=== PATIENT | female | born 1990 | race Two or more races ===

== ENCOUNTER 2018-02-09 21:04 | Inpatient (IN) | payer MEDICAID ==
[~2018-02-09] VITALS: Ht 167.6 cm; Wt 88.3 kg
[2018-02-09 21:23] LABS: BASOPHILS % (AUTO) 0.6 % (0.0-2.0); EOSINOPHILS % (AUTO) 0.4 % (1.0-6.0); HEMOGLOBIN 12.6 g/dL (12.0-16.0); LYMPHOCYTES # (AUTO) 1.5 K/uL (1.0-4.8); LYMPHOCYTES % (AUTO) 29.1 % (22.0-44.0); MEAN CORPUSCULAR HEMOGLOBIN 33.3 pg (26.0-34.0); MEAN CORPUSCULAR VOLUME 95 fL (80-100); MONOCYTES # (AUTO) 0.4 K/uL (0.1-1.0); MONOCYTES % (AUTO) 8.3 % (2.0-9.0); NEUTROPHILS # (AUTO) 3.1 K/uL (1.8-7.7); NEUTROPHILS % (AUTO) 61.6 % (40.0-70.0); PLATELET COUNT (AUTO) 214 K/uL (150-450); RED BLOOD CELL COUNT(AUTO) 3.79 MIL/uL (4.00-5.20); RED CELL DISTRIBUTION WIDTH 12.5 % (11.5-14.5)
[2018-02-09] MEDS ORDERED: VENL25TA47 PO (21:25)
[2018-02-09] MEDS ORDERED: MIRT15 PO (21:25)
[2018-02-09] MEDS ORDERED: PHEN50TA2 PO (21:25)
[2018-02-09] MEDS ORDERED: GABA-529 PO (21:25)
[2018-02-09] MEDS ORDERED: PRAZ1 PO (21:25)
[2018-02-09 21:32] LABS: ANION GAP 5 mmol/L (8-16); CALCIUM, TOTAL 8.9 mg/dL (8.8-10.5); CARBON DIOXIDE 29 mmol/L (22-29); CHLORIDE 103 mmol/L (98-107); CREATININE 0.79 mg/dL (0.60-1.30); GLOMERULAR FILTR. RATE CALC > 60 mL/min (>60); GLUCOSE,RANDOM 137 mg/dL (70-110); POTASSIUM 4.1 mmol/L (3.5-5.1); SODIUM SERUM 137 mmol/L (136-145); UREA NITROGEN, BLOOD 12 mg/dL (7-18)
[2018-02-09 21:38] LABS: ACETAMINOPHEN < 2 mcg/mL (10-30); ALANINE AMINOTRANSFERASE 24 U/L (12-78); ALBUMIN 3.6 g/dL (3.4-5.0); ALKALINE PHOSPHATASE 81 U/L (46-116); ASPARTATE AMINOTRANSFERASE 13 U/L (15-37); BILIRUBIN,TOTAL 0.2 mg/dL (0.1-1.0); TOTAL PROTEIN, SERUM 6.8 g/dL (6.4-8.2)
[2018-02-09 21:56] LABS: PHENYTOIN (DILANTIN) 32.6 mcg/mL (10.0-20.0)
[2018-02-09 22:07] LABS: SALICYLATE 2.3 mg/dL (2.8-20.0)
[2018-02-09 22:51] LABS: APPEARANCE,URINE CLEAR (CLEAR); BILIRUBIN,URINE NEGATIVE (NEGATIVE); GLUCOSE, URINE (UA) NEGATIVE (NEGATIVE); KETONES,URINE NEGATIVE (NEGATIVE); LEUKOCYTE ESTERASE ,URINE NEGATIVE (NEGATIVE); NITRATE,URINE NEGATIVE (NEGATIVE); OCCULT BLOOD,URINE NEGATIVE (NEGATIVE); PROTEIN,URINE NEGATIVE (NEGATIVE); UROBILINOGEN,URINE 0.2 mg/dL (<=1.0)
[2018-02-09 22:54] LABS: AMPHET/METH SCREEN,URINE NEGATIVE (NEGATIVE); BARBITURATE SCREEN, URINE NEGATIVE (NEGATIVE); BENZODIAZEPINES SCREEN,URINE NEGATIVE (NEGATIVE); CANNABINOID SCREEN,URINE POSITIVE (NEGATIVE); COCAINE SCREEN,URINE NEGATIVE (NEGATIVE); METHADONE SCREEN, URINE NEGATIVE (NEGATIVE); OPIATE SCREEN,URINE POSITIVE (NEGATIVE)
[2018-02-09 22:55] LABS: PHENCYCLIDINE SCREEN,URINE NEGATIVE (NEGATIVE)
[2018-02-09 23:09] LABS: BACTERIA,URINE Rare /HPF (None Seen); RBC,URINE 0-2 /HPF (0-2); SQUAMOUS EPITHELIAL CELL,UR Few /LPF (None Seen); WBC,URINE 0-2 /HPF (0-5)
[2018-02-09] MEDS ORDERED: 0.9% SODIUM CHLORIDE 10 ML SYRINGE IVP PRN (23:15)
[2018-02-09] MEDS ORDERED: ONDANSETRON HCL 4 MG/2 ML VIAL IVP PRN (23:15)
[2018-02-09] MEDS ORDERED: ACETAMINOPHEN 325 MG TABLET PO PRN (23:15)
[2018-02-09] MEDS ORDERED: BISACODYL 10 MG RECTAL RECTAL SUPPOSITORY PR PRN (23:45)
[2018-02-09] MEDS ORDERED: MAGNESIUM HYDROXIDE SUSPENSION 30 ML UDCUP PO PRN (23:45)
[2018-02-09] MEDS ORDERED: IPRATROPIUM BROMIDE 0.5 MG/2.5 ML NEB SOLUTION NEB PRN (23:45)
[2018-02-09] MEDS ORDERED: ALBUTEROL SULFATE 2.5 MG/0.5 ML NEB SOLUTION NEB PRN (23:45)
[2018-02-10] MEDS: SODIUM CHLORIDE 0.9% 1,000 ML IV SCH ×2 (00:34→08:44)
[2018-02-10] MEDS: ACETAMINOPHEN 325 MG TABLET PO PRN (05:34)
[2018-02-10 08:04] LABS: BASOPHILS % (AUTO) 0.7 % (0.0-2.0); EOSINOPHILS % (AUTO) 1.1 % (1.0-6.0); HEMATOCRIT 33.6 % (36-46); LYMPHOCYTES % (AUTO) 37.3 % (22.0-44.0); MEAN CORPUSCULAR HEMOGLOBIN 33.6 pg (26.0-34.0); MEAN CORPUSCULAR HGB CONC 35.8 G/dL (31.0-37.0); MEAN CORPUSCULAR VOLUME 94 fL (80-100); MONOCYTES # (AUTO) 0.6 K/uL (0.1-1.0); MONOCYTES % (AUTO) 10.3 % (2.0-9.0); NEUTROPHILS # (AUTO) 2.7 K/uL (1.8-7.7); NEUTROPHILS % (AUTO) 50.6 % (40.0-70.0); PLATELET COUNT (AUTO) 208 K/uL (150-450); RED BLOOD CELL COUNT(AUTO) 3.58 MIL/uL (4.00-5.20); RED CELL DISTRIBUTION WIDTH 12.4 % (11.5-14.5)
[2018-02-10 08:22] LABS: ALANINE AMINOTRANSFERASE 21 U/L (12-78); ALBUMIN 3.3 g/dL (3.4-5.0); ALKALINE PHOSPHATASE 73 U/L (46-116); ANION GAP 4 mmol/L (8-16); ASPARTATE AMINOTRANSFERASE 13 U/L (15-37); BILIRUBIN,TOTAL 0.2 mg/dL (0.1-1.0); CALCIUM, TOTAL 8.1 mg/dL (8.8-10.5); CARBON DIOXIDE 28 mmol/L (22-29); CHLORIDE 106 mmol/L (98-107); CREATININE 0.76 mg/dL (0.60-1.30); GLOMERULAR FILTR. RATE CALC > 60 mL/min (>60); GLUCOSE,RANDOM 91 mg/dL (70-110); PHOSPHORUS 3.6 mg/dL (2.5-4.9); POTASSIUM 3.7 mmol/L (3.5-5.1); SODIUM SERUM 138 mmol/L (136-145); TOTAL PROTEIN, SERUM 6.3 g/dL (6.4-8.2); UREA NITROGEN, BLOOD 10 mg/dL (7-18)
[2018-02-10 08:25] LABS: PHENYTOIN (DILANTIN) 30.3 mcg/mL (10.0-20.0)
[2018-02-10] MEDS: ONDANSETRON HCL 4 MG/2 ML VIAL IVP PRN (16:17)
[2018-02-10 18:22] VITALS: BP 117/68
[2018-02-10 19:31] VITALS: BP 124/56
[2018-02-10 19:34] VITALS: BP 124/56
[2018-02-10] MEDS: ZOLPIDEM TARTRATE 5 MG TABLET PO PRN (22:40)
[2018-02-10 23:41] VITALS: BP 114/58
[2018-02-11] MEDS: SODIUM CHLORIDE 0.9% 1,000 ML IV SCH ×3 (02:58→21:35)
[2018-02-11 04:32] VITALS: BP 110/68
[2018-02-11 07:22] VITALS: BP 113/65
[2018-02-11 07:48] LABS: BASOPHILS % (AUTO) 0.6 % (0.0-2.0); EOSINOPHILS % (AUTO) 1.7 % (1.0-6.0); HEMATOCRIT 34.6 % (36-46); HEMOGLOBIN 12.2 g/dL (12.0-16.0); LYMPHOCYTES % (AUTO) 35.5 % (22.0-44.0); MEAN CORPUSCULAR HEMOGLOBIN 33.3 pg (26.0-34.0); MEAN CORPUSCULAR HGB CONC 35.2 G/dL (31.0-37.0); MEAN CORPUSCULAR VOLUME 95 fL (80-100); MONOCYTES # (AUTO) 0.5 K/uL (0.1-1.0); MONOCYTES % (AUTO) 9.5 % (2.0-9.0); NEUTROPHILS % (AUTO) 52.7 % (40.0-70.0); PLATELET COUNT (AUTO) 196 K/uL (150-450); RED BLOOD CELL COUNT(AUTO) 3.66 MIL/uL (4.00-5.20); RED CELL DISTRIBUTION WIDTH 12.6 % (11.5-14.5)
[2018-02-11 07:58] LABS: ANION GAP 3 mmol/L (8-16); CALCIUM, TOTAL 8.6 mg/dL (8.8-10.5); CARBON DIOXIDE 29 mmol/L (22-29); CHLORIDE 106 mmol/L (98-107); CREATININE 0.77 mg/dL (0.60-1.30); GLOMERULAR FILTR. RATE CALC > 60 mL/min (>60); GLUCOSE,RANDOM 88 mg/dL (70-110); POTASSIUM 4.1 mmol/L (3.5-5.1); SODIUM SERUM 138 mmol/L (136-145); UREA NITROGEN, BLOOD 14 mg/dL (7-18)
[2018-02-11 08:36] LABS: PHENYTOIN (DILANTIN) 24.5 mcg/mL (10.0-20.0)
[2018-02-11 11:27] VITALS: BP 116/63
[2018-02-11] MEDS: ONDANSETRON HCL 4 MG/2 ML VIAL IVP PRN (12:14)
[2018-02-11 15:30] VITALS: BP 118/66
[2018-02-11] MEDS ORDERED: ATOM25 PO (15:51)
[2018-02-11 19:48] VITALS: BP 115/57
[2018-02-11] MEDS: LamoTRIgine 25 MG TABLET PO SCH (20:14)
[2018-02-11] MEDS: ZOLPIDEM TARTRATE 5 MG TABLET PO PRN (21:35)
[2018-02-12] VITALS (7 sets, daily range): BP systolic 94–127; BP diastolic 55–73
[2018-02-12] MEDS: VENLAFAXINE HCL 75 MG ER CAPSULE PO SCH (08:07)
[2018-02-12] MEDS: SODIUM CHLORIDE 0.9% 1,000 ML IV SCH ×2 (08:07→17:04)
[2018-02-12] MEDS: LamoTRIgine 25 MG TABLET PO SCH ×2 (08:07→20:50)
[2018-02-12] MEDS: ONDANSETRON HCL 4 MG/2 ML VIAL IVP PRN (12:32)
[2018-02-12] MEDS: ZOLPIDEM TARTRATE 5 MG TABLET PO PRN (20:51)
[2018-02-12] MEDS: ACETAMINOPHEN 325 MG TABLET PO PRN (20:51)
[2018-02-13 04:30] VITALS: BP 111/65
[2018-02-13] MEDS: SODIUM CHLORIDE 0.9% 1,000 ML IV SCH (05:56)
[2018-02-13 07:46] VITALS: BP 118/72
[2018-02-13] MEDS: VENLAFAXINE HCL 75 MG ER CAPSULE PO SCH (08:02)
[2018-02-13] MEDS: LamoTRIgine 25 MG TABLET PO SCH ×2 (08:03→19:51)
[2018-02-13 14:32] VITALS: BP 109/65
[2018-02-13 15:51] VITALS: BP_SYST 117; BP_SYST 177; BP_DIAS 61
[2018-02-13 20:22] VITALS: BP 117/56
[2018-02-13] MEDS: ZOLPIDEM TARTRATE 5 MG TABLET PO PRN (22:00)
[2018-02-14 00:01] VITALS: BP 115/62
[2018-02-14] MEDS: SODIUM CHLORIDE 0.9% 1,000 ML IV SCH (00:55)
[2018-02-14 05:35] VITALS: BP 107/63
[2018-02-14] MEDS: VENLAFAXINE HCL 75 MG ER CAPSULE PO SCH (08:22)
[2018-02-14] MEDS: LamoTRIgine 25 MG TABLET PO SCH ×2 (08:22→20:03)
[2018-02-14 08:24] VITALS: BP 121/65
[2018-02-14 16:02] VITALS: BP 120/68
[2018-02-14 20:00] VITALS: BP 107/69
[2018-02-14] MEDS: ZOLPIDEM TARTRATE 5 MG TABLET PO PRN (23:19)
[2018-02-14 23:22] VITALS: BP 107/62
[2018-02-15 05:32] VITALS: BP 103/60
[2018-02-15 08:30] VITALS: BP 105/66
[2018-02-15] MEDS: LamoTRIgine 25 MG TABLET PO SCH ×2 (08:46→19:51)
[2018-02-15] MEDS: VENLAFAXINE HCL 75 MG ER CAPSULE PO SCH (08:46)
[2018-02-15 11:02] VITALS: BP 110/56
[2018-02-15 15:54] VITALS: BP 108/63
[2018-02-15 20:00] VITALS: BP 101/59
[2018-02-15] MEDS: ZOLPIDEM TARTRATE 5 MG TABLET PO PRN (22:24)
[2018-02-16 00:22] VITALS: BP 104/59
[2018-02-16 04:45] VITALS: BP 100/51
[2018-02-16 08:00] VITALS: BP 100/57
[2018-02-16] MEDS: VENLAFAXINE HCL 75 MG ER CAPSULE PO SCH (08:42)
[2018-02-16] MEDS: LamoTRIgine 25 MG TABLET PO SCH ×2 (08:42→21:34)
[2018-02-16 11:47] VITALS: BP 106/59
[2018-02-16 16:00] VITALS: BP 103/52
[2018-02-16 19:57] VITALS: BP 109/56
[2018-02-17 00:07] VITALS: BP 97/57
[2018-02-17 04:15] VITALS: BP 101/72
[2018-02-17 07:38] VITALS: BP 94/46
[2018-02-17] MEDS: LamoTRIgine 25 MG TABLET PO SCH ×2 (08:42→20:13)
[2018-02-17] MEDS: VENLAFAXINE HCL 75 MG ER CAPSULE PO SCH (08:43)
[2018-02-17 11:43] VITALS: BP 108/47
[2018-02-17 16:25] VITALS: BP 99/54
[2018-02-17 20:19] VITALS: BP 117/60
[2018-02-18 00:10] VITALS: BP 112/56
[2018-02-18] MEDS: ZOLPIDEM TARTRATE 5 MG TABLET PO PRN (00:18)
[2018-02-18 04:00] VITALS: BP 121/82
[2018-02-18 08:00] VITALS: BP 103/50
[2018-02-18] MEDS: VENLAFAXINE HCL 75 MG ER CAPSULE PO SCH (08:30)
[2018-02-18] MEDS: LamoTRIgine 25 MG TABLET PO SCH ×2 (08:30→20:22)
[2018-02-18 12:03] VITALS: BP 99/48
[2018-02-18 16:15] VITALS: BP 108/60
[2018-02-18 19:53] VITALS: BP 112/52
[2018-02-19] VITALS (7 sets, daily range): BP systolic 98–112; BP diastolic 47–60
[2018-02-19] MEDS: LamoTRIgine 25 MG TABLET PO SCH (09:07)
[2018-02-19] MEDS: VENLAFAXINE HCL 75 MG ER CAPSULE PO SCH (09:07)
[2018-02-20 04:28] VITALS: BP 100/52
[2018-02-20 07:59] VITALS: BP 97/51
[2018-02-20] MEDS: LamoTRIgine 25 MG TABLET PO SCH ×3 (09:31→20:45)
[2018-02-20] MEDS: VENLAFAXINE HCL 75 MG ER CAPSULE PO SCH (09:31)
[2018-02-20 11:28] VITALS: BP 106/55
[2018-02-20 15:10] VITALS: BP 104/62
[2018-02-20 19:38] VITALS: BP 118/54
[2018-02-20] MEDS: ZOLPIDEM TARTRATE 5 MG TABLET PO PRN ×2 (20:45)
[2018-02-20 23:09] VITALS: BP 106/58
[2018-02-21 05:26] VITALS: BP 100/48
[2018-02-21 07:10] VITALS: BP 97/51
[2018-02-21] MEDS: LamoTRIgine 25 MG TABLET PO SCH ×2 (09:02→20:25)
[2018-02-21] MEDS: VENLAFAXINE HCL 75 MG ER CAPSULE PO SCH (09:02)
[2018-02-21 11:20] VITALS: BP 112/56
[2018-02-21 15:57] VITALS: BP 109/65
[2018-02-21 19:13] VITALS: BP 120/62
[2018-02-21] MEDS: ZOLPIDEM TARTRATE 5 MG TABLET PO PRN (20:25)
[2018-02-21 23:41] VITALS: BP 101/58
[2018-02-22 07:32] VITALS: BP 109/59
[2018-02-22] MEDS: LamoTRIgine 25 MG TABLET PO SCH (09:19)
[2018-02-22] MEDS: VENLAFAXINE HCL 75 MG ER CAPSULE PO SCH (09:19)
[2018-02-22] MEDS ORDERED: LAMO25TA66 PO (11:27)
[2018-02-22] MEDS ORDERED: VENL-67 PO (11:29)
[2018-02-22 15:51] VITALS: BP 112/64
== END 2018-02-22 17:00 | disposition home or self-care (01) | DRG 812 ==
LOC: EMS 21:05 → 5S 02-10 17:58 → 6N 02-12 16:50
PROVIDERS: ADMIT Internal Medicine; ATTEND Internal Medicine
DX: T42.0X2A Poisoning by hydantoin derivatives, intentional self-harm, initial encounter (principal); R45.851 Suicidal ideations; T42.0X5A Adverse effect of hydantoin derivatives, initial encounter; G40.909 Epilepsy, unspecified, not intractable, without status epilepticus; G47.00 Insomnia, unspecified; D64.9 Anemia, unspecified; E83.42 Hypomagnesemia; F12.10 Cannabis abuse, uncomplicated; F20.9 Schizophrenia, unspecified; F17.210 Nicotine dependence, cigarettes, uncomplicated; T44.6X2A Poisoning by alpha-adrenoreceptor antagonists, intentional self-harm, initial encounter; F32.9 Major depressive disorder, single episode, unspecified; F41.9 Anxiety disorder, unspecified; H55.00 Unspecified nystagmus; Z88.4 Allergy status to anesthetic agent; Z71.51 Drug abuse counseling and surveillance of drug abuser; Z88.0 Allergy status to penicillin; Z88.2 Allergy status to sulfonamides; Z88.8 Allergy status to other drugs, medicaments and biological substances; Z88.1 Allergy status to other antibiotic agents; Z79.899 Other long term (current) drug therapy; Y92.89 Other specified places as the place of occurrence of the external cause; Z71.6 Tobacco abuse counseling; Z82.5 Family history of asthma and other chronic lower respiratory diseases; Z82.0 Family history of epilepsy and other diseases of the nervous system; Z84.89 Family history of other specified conditions; Z72.89 Other problems related to lifestyle
CPT/HCPCS: 83735; 84100; 87081; 93005; 94640; 96374; 99285; G0480; G0481; J2405; J7030

== ENCOUNTER 2023-07-26 01:13 | Emergency (ER) | payer MEDICARE, MEDICAID ==
[~2023-07-26] VITALS: Ht 167.6 cm; Wt 81.0 kg
[~2023-07-26 01:13] MED LIST: LAMO25TA66 PO; VENL-67 PO
[2023-07-26 02:03] VITALS: TEMP 98.4
[2023-07-26 02:50] LABS: BASOPHILS % (AUTO) 0.1 % (0.0-2.0); EOSINOPHILS % (AUTO) 0.6 % (1.0-6.0); HEMATOCRIT 41.4 % (36-46); HEMOGLOBIN 13.9 g/dL (12.0-16.0); LYMPHOCYTES # (AUTO) 1.1 K/uL (1.0-4.8); MEAN CORPUSCULAR HEMOGLOBIN 30.2 pg (26.0-34.0); MEAN CORPUSCULAR HGB CONC 33.6 G/dL (31.0-37.0); MEAN CORPUSCULAR VOLUME 90 fL (80-100); MONOCYTES # (AUTO) 0.6 K/uL (0.1-1.0); MONOCYTES % (AUTO) 4.3 % (2.0-9.0); NEUTROPHILS # (AUTO) 11.8 K/uL (1.8-7.7); PLATELET COUNT (AUTO) 288 K/uL (150-450); RED BLOOD CELL COUNT(AUTO) 4.59 MIL/uL (4.00-5.20); RED CELL DISTRIBUTION WIDTH 13.6 % (11.5-14.5); WHITE BLOOD COUNT (AUTO) 13.6 K/uL (4.5-11.0)
[2023-07-26 03:05] LABS: ANION GAP 10 mmol/L (8-16); CALCIUM, TOTAL 9.5 mg/dL (8.8-10.5); CARBON DIOXIDE 29 mmol/L (22-29); CHLORIDE 103 mmol/L (98-107); CREATININE 0.83 mg/dL (0.60-1.30); GLOMERULAR FILTR. RATE CALC > 60 mL/min (>60); GLUCOSE,RANDOM 122 mg/dL (70-110); POTASSIUM 3.2 mmol/L (3.5-5.1); SODIUM SERUM 142 mmol/L (136-145); UREA NITROGEN, BLOOD 9 mg/dL (7-18)
[2023-07-26 03:13] LABS: ALANINE AMINOTRANSFERASE 16 U/L (12-78); ALBUMIN 4.2 g/dL (3.4-5.0); ALKALINE PHOSPHATASE 80 U/L (46-116); ASPARTATE AMINOTRANSFERASE 18 U/L (15-37); BILIRUBIN,TOTAL 0.3 mg/dL (0.1-1.0); TOTAL PROTEIN, SERUM 8.1 g/dL (6.4-8.2)
[2023-07-26 03:17] LABS: ALCOHOL, BLOOD (SERUM) < 3 mg/dL (0-10)
[2023-07-26 04:20] VITALS: BP 119/63; PULSE 77; RESP 16
[2023-07-26] MEDS ORDERED: NALO4SPR NASAL (05:25)
== END 2023-07-26 06:31 | disposition home or self-care (01) ==
LOC: EMS 01:13
DX: T40.601A Poisoning by unspecified narcotics, accidental (unintentional), initial encounter (principal); F31.9 Bipolar disorder, unspecified; F20.9 Schizophrenia, unspecified; F17.210 Nicotine dependence, cigarettes, uncomplicated; F10.90 Alcohol use, unspecified, uncomplicated; F12.90 Cannabis use, unspecified, uncomplicated; F15.90 Other stimulant use, unspecified, uncomplicated; Z88.0 Allergy status to penicillin; Z88.2 Allergy status to sulfonamides; Z88.8 Allergy status to other drugs, medicaments and biological substances; Y92.89 Other specified places as the place of occurrence of the external cause
CPT/HCPCS: 99284; 80053; 85025; 36415; 93005; G0480

== ENCOUNTER → 2024-06-19 | Emergency (ER) | payer MEDICARE, OTHER ==
[~2024-06-19] VITALS: Ht 160 cm; Wt 65.9 kg
[~2024-06-19] MED LIST changes: +NALO4SPR NASAL
[2024-06-19 23:13] VITALS: TEMP 97.2
[2024-06-20 00:17] LABS: ANION GAP 7 mmol/L (8-16); CALCIUM, TOTAL 8.9 mg/dL (8.8-10.5); CARBON DIOXIDE 29 mmol/L (22-29); CHLORIDE 101 mmol/L (98-107); CREATININE 0.81 mg/dL (0.60-1.30); GLOMERULAR FILTR. RATE CALC > 60 mL/min (>60); GLUCOSE,RANDOM 80 mg/dL (70-110); SODIUM SERUM 137 mmol/L (136-145); UREA NITROGEN, BLOOD 21 mg/dL (7-18)
[2024-06-20 00:18] LABS: BASOPHILS % (AUTO) 0.4 % (0.0-2.0); HEMATOCRIT 35.2 % (36-46); LYMPHOCYTES # (AUTO) 1.8 K/uL (1.0-4.8); LYMPHOCYTES % (AUTO) 17.9 % (22.0-44.0); MEAN CORPUSCULAR HEMOGLOBIN 32.1 pg (26.0-34.0); MEAN CORPUSCULAR HGB CONC 34.2 G/dL (31.0-37.0); MEAN CORPUSCULAR VOLUME 94 fL (80-100); MONOCYTES # (AUTO) 0.7 K/uL (0.1-1.0); MONOCYTES % (AUTO) 7.4 % (2.0-9.0); NEUTROPHILS # (AUTO) 7.4 K/uL (1.8-7.7); NEUTROPHILS % (AUTO) 73.3 % (40.0-70.0); PLATELET COUNT (AUTO) 285 K/uL (150-450); RED BLOOD CELL COUNT(AUTO) 3.75 MIL/uL (4.00-5.20); RED CELL DISTRIBUTION WIDTH 12.9 % (11.5-14.5); WHITE BLOOD COUNT (AUTO) 10.1 K/uL (4.5-11.0)
[2024-06-20 00:19] LABS: ALCOHOL, BLOOD (SERUM) < 3 mg/dL (0-10)
[2024-06-20 04:02] VITALS: BP 130/56; PULSE 88; RESP 15; O2SAT 98
== END | disposition home or self-care (01) ==
LOC: EMS 23:09
DX: T40.601A Poisoning by unspecified narcotics, accidental (unintentional), initial encounter (principal); T40.411A Poisoning by fentanyl or fentanyl analogs, accidental (unintentional), initial encounter; F20.9 Schizophrenia, unspecified; F12.90 Cannabis use, unspecified, uncomplicated; Z88.0 Allergy status to penicillin; Z88.1 Allergy status to other antibiotic agents; Z88.2 Allergy status to sulfonamides; Z79.899 Other long term (current) drug therapy; Y92.89 Other specified places as the place of occurrence of the external cause
CPT/HCPCS: 99291; 80048; 84703; 85025; 36415; G0480